=== PATIENT | female | born 1965 | race Caucasian/White ===

== ENCOUNTER → 2018-03-08 | Outpatient (CLI) | payer OTHER | LOC: COL.RAD 05:57 | DX: R10.11 Right upper quadrant pain (principal) | CPT/HCPCS: A9537; J2270 ==

== ENCOUNTER → 2021-10-12 | Outpatient (CLI) | payer BC | LOC: MC.RAD 09:46 | DX: R92.1 Mammographic calcification found on diagnostic imaging of breast (principal) ==